=== PATIENT | female | born 1980 | race Caucasian/White ===

== ENCOUNTER → 2020-05-05 | Outpatient (CLI) | payer OTHER | LOC: M.RAD 04-21 11:18 → M.MRI 05-01 13:00 → M.RAD 05-01 13:00 | PROVIDERS: ATTEND Family Medicine | DX: M25.512 Pain in left shoulder (principal); G89.29 Other chronic pain; M75.22 Bicipital tendinitis, left shoulder; F41.9 Anxiety disorder, unspecified; G43.909 Migraine, unspecified, not intractable, without status migrainosus; F32.9 Major depressive disorder, single episode, unspecified; Z87.891 Personal history of nicotine dependence; Z72.89 Other problems related to lifestyle; Z79.899 Other long term (current) drug therapy; Z98.890 Other specified postprocedural states ==

== ENCOUNTER 2020-07-06 13:15 | Emergency (ER) | payer OTHER ==
[~2020-07-06] VITALS: Ht 182.9 cm; Wt 121.1 kg
[2020-07-06] MEDS ORDERED: ZOLOFT 50 MG TA50 M1 PO (13:36)
[2020-07-06] MEDS ORDERED: LORATIDINE 10 M10 M1 PO (13:36)
[2020-07-06 13:51] LABS: ABSOLUTE BASOPHILS 0.1 thou/uL (0.0-0.2); ABSOLUTE EOSINOPHILS 0.1 thou/uL (0.0-0.7); ABSOLUTE LYMPHOCYTES 3.5 thou/uL (0.8-5.3); ABSOLUTE MONOCYTES 0.7 thou/uL (0.0-1.2); ABSOLUTE NEUTROPHILS 4.7 thou/uL (1.6-8.1); BASOPHILS 0.7 %; EOSINOPHILS 0.7 %; HEMOGLOBIN 11.3 gm/dL (12.0-15.0); LYMPHOCYTES 38.4 %; MCH 22.1 pg (26.0-34.0); MCHC 32.1 g/dL (28.0-37.0); MCV 68.8 fL (80.0-100.0); MONOCYTES 7.9 %; MPV 7.4 fl. (7.2-11.1); NUCLEATED RBCS 0 /100WBC; PLATELET COUNT* 347 thou/uL (150-400); POLYS 52.3 %; RBC 5.09 mil/uL (4.20-5.00); RDW-CV 17.3 % (10.5-14.5)
[2020-07-06 14:03] LABS: CALCIUM 8.9 mg/dL (8.5-10.1); CREATININE 0.7 mg/dL (0.6-1.3)
[2020-07-06 14:07] LABS: ALBUMIN 3.6 g/dL (3.4-5.0); TOTAL BILIRUBIN 0.3 mg/dL (<0.1-1.0); TOTAL PROTEIN 7.7 g/dL (6.4-8.2)
[2020-07-06 14:20] LABS: MICROCYTES 3+
[2020-07-06 14:21] LABS: HYPOCHROMASIA 2+
[2020-07-06 14:22] LABS: PLATELET ESTIMATE ADEQUATE
[2020-07-06 14:25] LABS: TOXIC GRANULATION Occasional
[2020-07-06] MEDS ORDERED: NORCO 5-325 TA1 EAC2 PO (15:37)
[2020-07-06] MEDS ORDERED: FLEXERIL PO (15:37)
[2020-07-06 16:00] VITALS: BP 144/67
== END 2020-07-06 16:00 | disposition home or self-care (01) ==
LOC: M.ERS 13:15
PROVIDERS: Emergency Medicine Emergency Medical Services
DX: M25.512 Pain in left shoulder (principal); M25.552 Pain in left hip; M54.2 Cervicalgia; R51.9 Headache, unspecified; Z79.899 Other long term (current) drug therapy; V43.52XA Car driver injured in collision with other type car in traffic accident, initial encounter; Y93.89 Activity, other specified; Y92.89 Other specified places as the place of occurrence of the external cause; Y99.8 Other external cause status

== ENCOUNTER → 2020-12-22 | Outpatient (CLI) | payer OTHER ==
[~2020-12-22] MED LIST: FLEXERIL PO; LORATIDINE 10 M10 M1 PO; NORCO 5-325 TA1 EAC2 PO; ZOLOFT 50 MG TA50 M1 PO
== END ==
LOC: M.MRI 13:19
PROVIDERS: ATTEND Family Medicine
DX: M51.37 Other intervertebral disc degeneration, lumbosacral region (principal); G89.29 Other chronic pain; R93.6 Abnormal findings on diagnostic imaging of limbs; M47.817 Spondylosis without myelopathy or radiculopathy, lumbosacral region; M48.07 Spinal stenosis, lumbosacral region

== ENCOUNTER → 2021-01-08 | Outpatient (CLI) | payer OTHER ==
[~2021-01-08] MED LIST changes: +AIMOVIG AU70 MG/1 ML SUBQ; +IRON PO; +PEPCID AC20 MG PO; -ZOLOFT 50 MG TA50 M1 PO; +ZOLOFT25 MG PO
== END ==
LOC: M.PC 11:01
PROVIDERS: ATTEND Physical Medicine & Rehabilitation
DX: M51.16 Intervertebral disc disorders with radiculopathy, lumbar region (principal); M48.061 Spinal stenosis, lumbar region without neurogenic claudication

== ENCOUNTER → 2021-01-16 | Outpatient (CLI) | payer OTHER | LOC: M.LAB 12:51 | PROVIDERS: ATTEND Orthopaedic Surgery | DX: Z01.812 Encounter for preprocedural laboratory examination (principal); Z20.822 Contact with and (suspected) exposure to COVID-19 ==

== ENCOUNTER → 2021-01-17 | Outpatient (CLI) | payer OTHER | LOC: M.PC 09:16 | PROVIDERS: ATTEND Physical Medicine & Rehabilitation | DX: M51.17 Intervertebral disc disorders with radiculopathy, lumbosacral region (principal); M48.07 Spinal stenosis, lumbosacral region; M47.26 Other spondylosis with radiculopathy, lumbar region; M79.605 Pain in left leg ==

== ENCOUNTER → 2021-02-19 | Outpatient (CLI) | payer OTHER | END | disposition home or self-care (01) | LOC: M.PC 01-24 09:30 | PROVIDERS: ATTEND Physical Medicine & Rehabilitation | DX: M51.16 Intervertebral disc disorders with radiculopathy, lumbar region (principal); M47.26 Other spondylosis with radiculopathy, lumbar region; M48.061 Spinal stenosis, lumbar region without neurogenic claudication; M79.605 Pain in left leg; D64.9 Anemia, unspecified; J45.909 Unspecified asthma, uncomplicated; F32.9 Major depressive disorder, single episode, unspecified; Z98.890 Other specified postprocedural states; Z79.899 Other long term (current) drug therapy; Z98.51 Tubal ligation status ==